=== PATIENT | male | born 1995 | race African-American/Black ===

== ENCOUNTER 2020-12-18 17:22 | Emergency (ER) | payer SELFPAY ==
[~2020-12-18] VITALS: Ht 180.3 cm; Wt 122.0 kg
[2020-12-18] MEDS ORDERED: IBUPROFEN 600MG TABLET PO ONE (18:45)
[2020-12-18 18:55] VITALS: BP 143/83
== END 2020-12-18 19:55 | disposition home or self-care (01) ==
LOC: ER 19:48
DX: J18.9 Pneumonia, unspecified organism (principal); Z20.822 Contact with and (suspected) exposure to COVID-19
CPT/HCPCS: 99283; C9803; U0003; U0005